=== PATIENT | female | born 1960 | race African-American/Black ===

== ENCOUNTER → 2016-11-25 | Outpatient (CLI) | payer OTHER ==
[~2016-11-25] MED LIST: AMITIZA24 MCG PO; COZAAR100 MG PO; EXCEDRIN MIGRA1 EACH PO; GLUCOPHAGE500 MG PO; HUMALOG100 U/ML SQ; LANTUS SOL100 UNIT/1 SUBQ; LINZESS145 MCG PO; LOSARTAN-HCTZ1 EAC1 PO; MULTI VITAMIN1 EACH PO; NAPROSYN500 MG PO; OXAYDO7.5 MG PO; TRAMADOL HCL50 M2 PO; VOLTAREN75 MG PO
--- NOTE | ~2016-11-25 | XA32 ---
[facility] A Service of [facility] RADIOLOGY TEXT RESULTS PATIENT: KRISSY TOTH LOCATION: [facility] : 62 UNIT #: [id number] AGE: [address]: Bladimir Starkey MD SEX: F ORDER DR: [id number] [facility] [address] [place], [place] [address] [id number] O MR#: [id number] Acc #: [id number] NAME: KRISSY TOTH : 1960 SEX: F STUDY DATE/TIME: 11/25/2016 13:36 UNIT: [facility] ROOM: STUDY DESCRIPTION: XA Arthrogram Shoulder Lt Attending Physician: Bladimir Starkey M.D. Referring Physician: Bladimir Starkey M.D. Ordering Physician: Bladimir Starkey M.D. Primary Care Physician: Primary Care Physician No MEDICAL IMAGING REPORT This report is preliminary unless electronic signature is present EXAM Left shoulder arthrogram INDICATION Persistent left shoulder pain. Patient has had a prior rotator cuff repair in May 2016 and history of distal clavicular resection as well. PROCEDURE The risks, benefits, and alternatives to the procedure were explained to the patient, and signed, informed consent was obtained. Patient was placed supine on the angiographic table and was prepped and draped in the usual sterile fashion. Time-out was performed as per protocol. Skin and subcutaneous tissues were anesthetized with buffered lidocaine and a 22-gauge spinal needle was advanced into the joint space. Additional contrast was injected. The needle was removed and manual pressure was applied until hemostasis was obtained. Patient was noted to have some contrast extending into the subacromial/subdeltoid bursa likely reflecting underlying rotator cuff tear. Total fluoroscopy time was 1.7 minutes. AK was 12 mGy. IMPRESSION Technically successful left shoulder arthrogram as noted above. Fluoroscopy was used during the procedure and permanent images were saved. Please see the separately dictated report for full description of the findings of the MRI of the left shoulder. Dictated by... Nona Moreno M.D. THIS IS AN ELECTRONICALLY VERIFIED REPORT Twan Navarrete.D. at 11/28/2016 3:53 PM AFF/mjs [facility] A Service of [facility] RADIOLOGY TEXT RESULTS PATIENT: KRISSY TOTH LOCATION: [facility] : 62 UNIT #: [id number] AGE: [address]: Bladimir Starkey MD SEX: F ORDER DR: TD: 11/28/2016 09:34 JOB #: [id number] MEDICAL IMAGING REPORT Page 1 of 1 COPY
--- NOTE | ~2016-11-25 | CT125 ---
[facility] A Service of [facility] RADIOLOGY TEXT RESULTS PATIENT: KRISSY TOTH LOCATION: [facility] : 62 UNIT #: [id number] AGE: [address]: Bladimir Starkey MD SEX: F ORDER DR: [id number] [facility] [address] [place], [place] [address] [id number] O MR#: [id number] Acc #: [id number] NAME: KRISSY TOTH : 1960 SEX: F STUDY DATE/TIME: 11/25/2016 14:26 UNIT: [facility] ROOM: STUDY DESCRIPTION: CT Upper Ext Lt W Cont Attending Physician: Bladimir Starkey M.D. Referring Physician: Bladimir Starkey M.D. Ordering Physician: Bladimir Starkey M.D. Primary Care Physician: No Primary Care Physician MEDICAL IMAGING REPORT This report is preliminary unless electronic signature is present EXAM CT arthrogram left shoulder HISTORY A 56-year-old female with rotator cuff repair, May 2016. Persistent shoulder pain for over 4 years. Also history of distal clavicular resection. COMPARISON Conventional arthrogram 11/25/[address] arthrogram was performed of the left shoulder following intraarticular ejection of water-soluble contrast. Multiplanar reconstructed images reviewed at a workstation. This CT exam was performed with one or more of the following radiation dose reduction techniques: automatic exposure control, adjustment of mA and/or kV according to patient size, and iterative reconstruction. FINDINGS Normal osseous alignment. Morphologic changes at the AC joint consistent with distal clavicular resection and probable acromial debridement. Contrast distends the glenohumeral joint with communication to the subacromial-subdeltoid bursa through a full-thickness tear involving the anterior distal insertion of the supraspinatus tendon. Tear is estimated about 1.5 cm AP dimension x 0.9 cm medial to lateral dimension. The infraspinatus and teres minor and subscapularis tendons appear intact. No muscle atrophy. There is a degeneration superior labrum. Biceps anchor is not well [facility] A Service of [facility] RADIOLOGY TEXT RESULTS PATIENT: KRISSY TOTH LOCATION: [facility] : 62 UNIT #: [id number] AGE: [address]: Bladimir Starkey MD SEX: F ORDER DR: identified. The long tendon biceps is also not well seen within the bicipital groove. This may be technical but does raise the concern for possible biceps tendon tear. Visualized left thorax and soft tissues unremarkable. IMPRESSION 1. Approximately 9 x 15 mm full-thickness tear involving the anterior distal insertion of the supraspinatus tendon. 2. Postsurgical changes compatible with a distal clavicular resection. 3. Nonvisualization of the long tendon of the biceps does raise a concern for possible biceps tear. Dictated by... Deena Cordoba M.D. THIS IS AN ELECTRONICALLY VERIFIED REPORT Deena Cordoba M.D. at 11/26/2016 9:12 PM AMI/naida TD: 11/25/2016 21:20 JOB #: [id number] MEDICAL IMAGING REPORT Page 1 of 1 COPY
== END | disposition home or self-care (01) ==
LOC: CIVR 13:07
DX: M75.122 Complete rotator cuff tear or rupture of left shoulder, not specified as traumatic (principal)
CPT/HCPCS: 73040; 73201; Q9967

== ENCOUNTER → 2016-12-20 | Outpatient (CLI) | payer OTHER ==
--- NOTE | ~2016-12-20 | EKG ---
PATIENT: KRISSY TOTH UNIT #: [id number] Ventricular Rate: 83 BPM Atrial Rate: 83 BPM P-R Interval: 168 ms QRS Duration: 76 ms Q-T Interval: 384 ms QTC Calculation(Bezet): 451 ms P [place]: 24 degrees Calculated R [place]: 3 degrees Calculated T [place]: 29 degrees Diagnosis Line: Normal sinus rhythm Diagnosis Line: Moderate voltage criteria for LVH, may be normal Diagnosis Line: variant Diagnosis Line: Borderline ECG Diagnosis Line: When compared with ECG of 13-MAY-2016 11:50, Diagnosis Line: No significant change was found Diagnosis Line: Confirmed by CHRISTINA SINGH MD ([id number]) on Diagnosis Line: 12/21/2016 8:29:30 AM INTERPRETING MD: SAMANTHA OWENS
[2016-12-20 12:08] LABS: HEMATOCRIT 40.4 % (35.0-45.0); HEMOGLOBIN 13.3 gm/dL (12.0-16.0); MEAN CELL VOLUME 90.4 FL (83-96); MEAN CORPUSCULAR HEMOGLOBIN 29.7 PG (28-34); MEAN CORPUSCULAR HGB CONC 32.8 g/dL (30-36); MEAN PLATELET VOLUME 8.3 FL (6.5-11.5); RED BLOOD COUNT 4.47 X10e (3.90-5.30); RED CELL DISTRIBUTION WIDTH 13.2 % (11.0-15.5); WHITE BLOOD COUNT 6.2 X10e3 (4.0-10.5)
[2016-12-20 12:42] LABS: BUN/CREATININE RATIO 21.42; CALCIUM SERUM 9.6 mg/dL (8.4-10.2); CREATININE SERUM 0.7 mg/dL (0.6-1.4); POTASSIUM 4.3 mmol/L (3.5-5.1)
== END | disposition home or self-care (01) ==
LOC: CAMB 10:38
PROVIDERS: Orthopaedic Surgery
DX: Z01.818 Encounter for other preprocedural examination (principal)
CPT/HCPCS: 36415; 80048; 85027; 93005

== ENCOUNTER → 2016-12-22 | Day surgery (SDC) | payer OTHER ==
--- NOTE | ~2016-12-22 | OR ---
Unit #: [id number] #: [id number] Patient: KRISSY TOTH [id number] [address] [address] [id number] O MR#: [id number] NAME: KRISSY TOTH. ROOM: Date of Procedure: 12/22/2016 Admission Date: 12/22/2016 Surgeon: Bladimir Starkey M.D. : 1960 Attending Physician: Bladimir Starkey M.D. Referring Physician: Bladimir Starkey M.D. Primary Care Physician: Primary Care Physician No OPERATIVE REPORT PREOPERATIVE DIAGNOSIS Left shoulder failed rotator cuff repair. POSTOPERATIVE DIAGNOSIS Left shoulder failed rotator cuff repair. PROCEDURES PERFORMED 1. Revision left arthroscopic rotator cuff repair, 65507. 2. Left shoulder arthroscopic limited debridement, 02282. [employer] Ronni Arellano CFA. ANESTHESIA General endotracheal. COMPLICATIONS None. SPECIMENS None. DRAINS None. SURGICAL IMPLANTS 1. Single 2.9 mm JuggerKnot suture anchor. 2. [place] knotless lateral row anchor. INDICATION FOR PROCEDURE Ms. Toth is a 56-year-old female, patient of mine, who had prior left shoulder arthroscopic rotator cuff repair. The patient continued to have pain despite working hard with Physical Therapy. A repeat CT arthrogram confirmed a small tear of the anterior supraspinatus. Due to limited function, pain, and failure to improve, the patient elected revision surgery. Risks, benefits, and alternatives were discussed. Risks include, but are not limited to, infection, bleeding, nerve injury, blood clots, risks associated with anesthesia, need for further surgery, persistent pain, and possibly . DESCRIPTION OF PROCEDURE On 12/22/2016, the patient was seen in the preoperative holding area, Unit #: [id number] #: [id number] Patient: KRISSY TOTH where her surgical site was marked. Preoperative antibiotics were received. H and P, consent updated. Preoperative block was performed. She was taken to the operating room and provided general anesthesia. She was carefully moved to the beach chair position. All bony prominences were well padded, and head and neck kept in neutral position at all times. Left upper extremity was prepped and draped in typical sterile fashion. A time-out was performed confirming the correct surgical site and procedure. At this point, a standard posterior portal was created with an 11-blade. A blunt trocar was carefully inserted into the glenohumeral joint. There was some very mild articular cartilage wear on the humeral head and glenoid. There was scarring and synovitis noted along the anterior aspect of the shoulder and superiorly. Through the rotator interval, a 5.5 mm cannula was placed into the joint. Arthroscopic shaver and wand were used to debride the articular cartilage back to a stable base along with removal of the scar tissue and synovitis. At this point, the camera was inserted into the subacromial space. A thorough bursectomy was performed. The prior sutures noted within the subacromial area. These were removed. Anterior bone spur noted on the acromion that was debrided down. At this point, the rotator cuff tear was identified. The tuberosity was shaved down to create a healthy bleeding bony base. The undersurface of the rotator cuff and leading edge were debrided as well. A single 2.9 mm JuggerKnot anchor was placed through a percutaneous portal right off the acromion. Sutures were shuttled through a direct lateral portal. They were passed in horizontal mattress fashion. They were then tied down sequentially reducing the rotator cuff back to the footprint. The sutures were then pulled over the top to a lateral row anchor that was placed in a standard fashion. The sutures were cut flush with the knot. At this point, full motion of the shoulder noted. No impingement. Final images were taken. All instruments were removed. Wound was thoroughly irrigated. Incisions were closed with 3-0 nylon suture. She was taken to the PACU postoperatively in stable condition. POSTOPERATIVE PLAN The patient will be discharged home. Follow up in the office in 10 to 14 days. No complications encountered during the surgical procedure. Dictated by... Mayo Singh/greg TD: 12/24/2016 04:15 JOB #: [id number] OPERATIVE REPORT Page 1 of 1 X X PROCEDURE OPERATIVE NOTE
[2016-12-22 07:16] LABS: CALCIUM SERUM 9.9 mg/dL (8.4-10.2); CREATININE SERUM 0.7 mg/dL (0.6-1.4); POTASSIUM 3.8 mmol/L (3.5-5.1)
== END | disposition home or self-care (01) ==
LOC: CSUR 06:12
PROVIDERS: Orthopaedic Surgery
DX: M75.102 Unspecified rotator cuff tear or rupture of left shoulder, not specified as traumatic (principal); M65.812 Other synovitis and tenosynovitis, left shoulder; Z88.8 Allergy status to other drugs, medicaments and biological substances; E11.9 Type 2 diabetes mellitus without complications; I10 Essential (primary) hypertension; K59.09 Other constipation
CPT/HCPCS: 80048; 82947; C1713; J0171; J0690; J0735; J1100; J2250; J2405; J2710; J2795; J3010